=== PATIENT | female | born 1960 | race Caucasian/White ===

== ENCOUNTER 2025-01-21 08:30 | Observation (INO) ==
--- NOTE | 2025-01-15 09:58 | Anesthesiology Consultation ---
Date of Service January 15, 2025 Assessment & Plan (1) Encounter for pre-operative examination: - surgeon ordered cardiology clearance 01/14/25: "...lumbar spine surgery...no issues with anesthesia in the past...not noticing any improvement in her SOB since starting Bumex...is scheduled with pulm in Feb for PFTs, 6 MWT and appt- may have to miss this d/t back surgery...dyspnea on exertion-likely non cardiac in nature, normal right heart pressures by 08/2023 cath...await f/u with pulm ...CAD mild LAD disease by 08/2023 cath...ongoing CCS class II WAY...cleared for back surgery from cardiac perspective at low cardiac risk...mild to moderate regurgitation, continue serial echo..." - surgeon ordered medical clearance 12/24/24: "...back surgery...pre-op EKG and labs, no changes or abnormalities per pt-these results are not available ...medically cleared for proposed procedure..." - Per mount loader on 01/03/25: No known infectious disease contacts, current infectious disease symptoms in past 10 days or COVID positive test result in the past 30 days. Chart Review Chart Review: Acceptable Risk for Surgery and Patient NOT seen in Pre Admission Testing History Surgery Operation Date: 01/21/25 10:05 Proposed Procedures p L2-S1 Decompression and Fusion - Apollo Rider DO Height/Weight Height: 5 ft 5 in Weight: 76.657 kg Allergies Allergy/AdvReac Type Severity Reaction Status Date / Time copper AdvReac Severe hallucinate Verified 01/03/25 14:08 s Medications Home Medications Medication Instructions Recorded Confirmed Last Taken albuterol sulfate 90 mcg/actuation 1 inh inhalation QID PRN sob 01/03/25 01/03/25 Unknown aerosol inhaler amlodipine 10 mg tablet 10 mg PO QAM 01/03/25 01/03/25 Unknown bumetanide 2 mg tablet 2 mg PO QAM 01/03/25 01/03/25 Unknown cholecalciferol (vitamin D3) 125 125 mcg PO DAILY 01/03/25 01/03/25 Unknown mcg (5,000 unit) tablet (Vitamin D3) citalopram 30 mg capsule 30 mg PO QAM 01/03/25 01/03/25 Unknown docusate sodium 100 mg capsule 100 mg PO QAM 01/03/25 01/03/25 Unknown (Colace) isosorbide mononitrate 30 mg 30 mg PO QAM 01/03/25 01/03/25 Unknown tablet,extended release 24 hr levothyroxine 125 mcg tablet 125 mcg PO QAM 01/03/25 01/03/25 Unknown metoprolol tartrate 25 mg tablet 25 mg PO QAM 01/03/25 01/03/25 Unknown oxycodone 5 mg tablet 5 mg PO Q6H PRN Pain 01/03/25 01/03/25 Unknown pantoprazole 40 mg tablet,delayed 40 mg PO BID 01/03/25 01/03/25 Unknown release potassium chloride 10 mEq 10 meq PO QAM 01/03/25 01/03/25 Unknown tablet,extended release rosuvastatin 10 mg tablet 10 mg PO QAM 01/03/25 01/03/25 Unknown Past Medical History Medical History (Updated 01/15/25 @ 09:55 by Catherine Han PA-C) Acid reflux Chronic low back pain COPD (chronic obstructive pulmonary disease) follows w/ pulmonology [facility] Dyslipidemia Fatty liver HTN (hypertension) Hypothyroidism SOB (shortness of breath) on exertion occasional Past Surgical History Surgical History History of carpal tunnel release of both wrists History of incision and drainage abcess, left knee Hx of appendectomy Hx of cardiac catheterization 12/2023 >> sob- no stents, [facility], follows w/ Dr Zhao Hx of section x 2 Hx of colonoscopy Hx of hysterectomy Social History Smoking Status: Former smoker Do You Dip or Chew Tobacco: No Smoking End Date: 12/2023 Hx Alcohol Use: No Hx Substance Use: No substance use type: does not use Lab Results Anesthesia Preop Results Results Anesthesia Widget: WBC 7.40 K/ul (4.8-10.8) 12/19/24 Hgb 12.9 g/dl (12.0-16.0) 12/19/24 Hct 38.0 % (37.0-47.0) 12/19/24 Plt 247 K/uL (130-400) 12/19/24 Na 140 mmol/L (136-145) 12/19/24 K 4.0 mmol/L (3.5-5.1) 12/19/24 Cl 104 mmol/L (98-107) 12/19/24 CO2 28 mmol/L (21-32) 12/19/24 BUN 16 mg/dl (6-23) 12/19/24 Creat 0.87 mg/dl (0.6-1.2) 12/19/24 Glucose Level 98 mg/dl (70-99(Fasting)) 12/19/24 PT 10.3 Seconds (9.0-12.0) 12/19/24 PTT 27 Seconds (21-31) 12/19/24 INR 1.0 (0.9-1.1) 12/19/24 Urine Color Yellow 12/19/24 Urine Appearance Clear (Clear) 12/19/24 Urine pH 5.0 (4.5-7.5) 12/19/24 Urine Specific [place] 1.020 (1.000-1.030) 12/19/24 Urine Protein Negative (Negative) 12/19/24 Urine Glucose (UA) Negative (Negative) 12/19/24 Urine Ketones Negative (Negative) 12/19/24 Urine Blood Negative (Negative) 12/19/24 Urine Nitrite Negative (Negative) 12/19/24 Urine Bilirubin Negative (Negative) 12/19/24 Urine Urobilinogen Negative (Negative) 12/19/24 Urine Leukocyte Esterase 1+ (Negative) H 12/19/24 Urine WBC (Auto) 11-20 /hpf (0-5) H 12/19/24 Urine RBC (Auto) 6-10 /hpf (0-2) H 12/19/24 Urine Hyaline Casts (Auto) 0-2 /lpf (0-2) 12/19/24 Urine Epithelial Cells (Auto) 11-20 /hpf (0-2) H 12/19/24 Urine Bacteria (Auto) 1+ (None Seen) H 12/19/24 Blood Type A Positive 12/19/24 Antibody Screen NEGATIVE 12/19/24 Testing Laboratory Results Abnormal UA, culture "three types of organisms present, all low counts probable skin corbin" and PCP notation that they did not have testing at time of review. Acceptable to proceed from anesthesia standpoint-surgeon's office made aware. Electrocardiogram Date: 12/19/24 NSR, rate [address] and T wave abnormality Chest X-Ray Date: 12/19/24 No acute findings Echocardiogram Date: 05/12/23 EF 50-55% Borderline LVH Mild to moderate mitral regurgitation Stress Test MPHR 60% No significant ischemia Low risk No significant infarction Cardiac Catheterization Date: 08/16/23 Left main: angiographically normal LAD: mildly calcified with a proximal 40% stenosis Cx: mild atherosclerosis RCA: mild atherosclerosis Mild to moderate nonobstructive CAD
[~2025-01-21 08:30] MED LIST: DEXAMETHASONE SOD INJ 4 MG/ML VIAL ONE; KETAMINE HCL 10MG/ML SYR ONE; LIDOCAINE 2% 2 ML VIAL/AMP(20MG/ML) INFIL ONE; MIDAZOLAM HCL 1 MG/ML 2ML VIAL ONE; ONDANSETRON INJ 2 MG/ML 2 ML VIAL ONE; PROPOFOL IV EMULSION 10 MG/ML 20 ML VIAL IV ONE; ROCURONIUM BROMIDE 10 MG/ML 5 ML VIAL IV ONE
[2025-01-21] MEDS: CeleBREX 200 MG CAP PO SCH (09:06)
[2025-01-21] MEDS: GABAPENTIN 600 MG DOSE PO SCH (09:06)
[2025-01-21] MEDS: ACETAMINOPHEN 500 MG TAB PO SCH (09:06)
[2025-01-21] MEDS: LR 60ML/HR IV SCH (09:07)
[2025-01-21] MEDS: LR 15ML/HR IV SCH (09:25)
--- NOTE | 2025-01-21 09:50 | History & Physical Bridge Note ---
Date of Service January 21, 2025 History & Physical Bridge Note I have examined the patient, reviewed the History & Physical and in the interval since the performance of the History & Physical I have noted the following changes of clinical significance: no changes noted
[2025-01-21] MEDS ORDERED: ONDANSETRON INJ 2 MG/ML 2 ML VIAL IV PRN ×2 (09:51→14:18)
[2025-01-21] MEDS ORDERED: ATROPINE SULFATE 0.1 MG/ML 10ML SYR IV PRN (09:51)
--- NOTE | 2025-01-21 09:51 | History & Physical Report ---
Date of Service January 21, 2025 Assessment & Plan (1) Lumbosacral spondylosis with radiculopathy: Plan: L4-S1 decompression and fusion History of Present Illness Chief Complaint: Back and leg pain Primary Care Provider: Felicity Robb PA-C This is a 64-year-old female presents for chronic persistent back and leg pain after failing course of nonoperative care she is here for surgical invention. Allergies Allergy/AdvReac Type Severity Reaction Status Date / Time copper AdvReac Severe hallucinate Verified 01/21/25 09:02 s Home Medications Medication Instructions Recorded Confirmed Type albuterol sulfate 90 mcg/actuation 1 inh inhalation QID PRN sob 01/03/25 01/21/25 History aerosol inhaler amlodipine 10 mg tablet 10 mg PO QAM 01/03/25 01/21/25 History bumetanide 2 mg tablet 2 mg PO QAM 01/03/25 01/21/25 History cholecalciferol (vitamin D3) 125 125 mcg PO DAILY 01/03/25 01/21/25 History mcg (5,000 unit) tablet (Vitamin D3) citalopram 30 mg capsule 30 mg PO QAM 01/03/25 01/21/25 History docusate sodium 100 mg capsule 100 mg PO QAM 01/03/25 01/21/25 History (Colace) isosorbide mononitrate 30 mg 30 mg PO QAM 01/03/25 01/21/25 History tablet,extended release 24 hr levothyroxine 125 mcg tablet 125 mcg PO QAM 01/03/25 01/21/25 History metoprolol tartrate 25 mg tablet 25 mg PO QAM 01/03/25 01/21/25 History oxycodone 5 mg tablet 5 mg PO Q6H PRN Pain 01/03/25 01/21/25 History pantoprazole 40 mg tablet,delayed 40 mg PO BID 01/03/25 01/21/25 History release potassium chloride 10 mEq 10 meq PO QAM 01/03/25 01/21/25 History tablet,extended release rosuvastatin 10 mg tablet 10 mg PO QAM 01/03/25 01/21/25 History Past Med/Surg History Problem List (Updated 01/21/25 @ 09:51 by Apollo Rider DO) Lumbosacral spondylosis with radiculopathy Encounter for pre-operative examination Medical History Acid reflux Chronic low back pain COPD (chronic obstructive pulmonary disease) follows w/ pulmonology [facility] Dyslipidemia Fatty liver HTN (hypertension) Hypothyroidism SOB (shortness of breath) on exertion occasional Surgical History History of carpal tunnel release of both wrists History of incision and drainage abcess, left knee Hx of appendectomy Hx of cardiac catheterization 12/2023 >> sob- no stents, [facility], follows w/ Dr Zhao Hx of section x 2 Hx of colonoscopy Hx of hysterectomy Social History Smoking Status: Former smoker Tobacco Type: Cigarettes Smoking End Date: 12/2023; Second Hand Exposure: No; Do You Dip or Chew Tobacco: No; Tobacco Cessation Education Requested by Patient: No Hx Alcohol Use: No Hx Substance Use: No Preferred Language: Macanese Communication Ability: Effective Assistant Hvac Mechanic Required: No Beliefs That Will Affect Care: None Current Living Situation: Spouse Other Information That Helps Us Care for You: No Feels Safe at Home: Yes Safety Concerns: Feels Safe At This Time Assistive Devices: Denture - Upper, Glasses and Walker Physical Exam Physical Exam: Patient is alert and oriented Heart regular rhythm Lungs clear Results & Data Results & Data Vital Signs (Past 12 Hours) Vital Signs Temp Pulse Resp BP Pulse Ox O2 Del Method 01/21/25 08:59 37 C 66 20 116/54 L 94 Room Air
[2025-01-21] MEDS ORDERED: PHENYLEPHRINE HCL 10 MG/ML VIAL ONE (10:39)
[2025-01-21] MEDS ORDERED: ALBUTEROL HFA 8 GM INHALER INH ONE (10:39)
[2025-01-21] MEDS ORDERED: GLYCOPYRROLATE 0.2 MG/ML VIAL ONE (10:48)
[2025-01-21] MEDS: ceFAZolin 330 MG/ML 1 GM VIAL ONE (10:57)
[2025-01-21] MEDS: BUPIVACAINE/EPINEPHRINE 0.25% 1:200,000 30 ML VIAL ONE (10:57)
[2025-01-21] MEDS ORDERED: SUGAMMADEX SODIUM 200 MG/2 ML VIAL IV ONE (12:08)
--- NOTE | 2025-01-21 12:22 | Operative Report ---
Post Operative Report Pre & Post Diagnosis Operation Date: 01/21/25 10:05 Pre-Op Diagnosis: #1 lumbar spondylosis with radiculopathy #2 lumbar spondylolisthesis with radiculopathy #3 lumbar spinal stenosis Post-Op Diagnosis: Same I identified the patient and participated in the time-out.: Yes Procedure Operation Date: 01/21/25 10:05 Actual Procedures #1 lumbar decompression with bilateral medial facetectomies and foraminotomies L3-L4, L4-L5 and L5-S1. #2 posterior spinal fusion L4-S1. #3 placement posterior instrumentation L4-S1 using Michel. #4 interbody fusion for L5 L5- S1. #5 placement of Spira 12 x 26 mm cage at L4-5 and 13 x 26 mm x 2 and L5-S1. #6 placement of Proteus combined with Koros bone graft in the posterior lateral gutters and os design in the interbody space. #7 application of versa wrap of the exposed dura. Surgeon Apollo Rider, Fuels Engineer Carolee Crisostomo Estimated Blood Loss 400 Findings See Below Specimens None Indications This is a 64-year-old female presents above-mentioned diagnosis after failing course of nonoperative care she is here for surgical invention. Description of Procedure Patient was met with identified and informed consent obtained. Patient was then taken to the operative suite underwent intubation placed in a prone position on the Speedy table on top of the [place] frame. All bony prominences well-padded eyes inspected to ensure no external pressure placed upon them. This point lumbar spine was prepped and draped in her normal sterile fashion. Sharp dissection with the assistance of Bovie cautery was performed down to and exposing the lamina transverse processes of L4-5 and sacral ala bilaterally. From a caudal to cephalad fashion complete laminectomy of L5 and L4 was performed including bilateral medial facetectomies and foraminotomies addressing severe neural compression this was followed by partial laminectomy of L3 with bilateral medial facetectomies to address all subarticular stenosis. Pedicle screws were then placed in L4-L5 and S1 levels bilaterally with assistance of fluoroscopy and appropriately sized rods contoured and placed. By way of transforaminal approach on the right discectomy of L5-S1 was performed endplates curetted to subcortical bleeding bone and a 13 x 26 mm Spira cage tapped into position. Then proceeded to the L4-L5 region. By way the transforaminal approach on the right a complete discectomy was performed. Endplates guided to subcortical bleeding bone and a 12 x 26 mm Spira cage tapped in position. Then proceeded to the left transforaminal region at L5-S1. Discectomy again performed. Endplates guided to subcortical bleeding bone. A second 13 x 26 mm Spira cage was tapped into position. Please note all cages were packed with os design bone graft. The rods were then compressed locked into final position bilaterally. The transverse processes of L4-L5 and the sacral ala burred to subcortical bleeding bone. Proteus combined with Koros bone graft was placed in the posterior gutters. Versa wrap placed over the exposed dura. 15 round HERLINDA drain inserted. The incision was then closed with 1 Vicryl fascia 2-0 Vicryl subcutaneously and 4 Monocryl for final skin closure. Steri-Strips sterile dressing placed. Patient waken taken to PACU in stable condition. Please note Carolee Crisostomo was present out the entire procedure and all the patient positioning complex portion of the surgery and final skin closure. I attest to the content of the Intraoperative Record and any orders documented therein. Any exceptions are noted below.
[2025-01-21] MEDS: FLOSEAL HEMOSTATIC MATRIX 10ML TOP ONE (12:27)
[2025-01-21] MEDS: HYDROmorphone INJ 1 MG/ML SYRINGE IV PRN (12:55)
[2025-01-21] MEDS: ALBUT/IPRATROP 3MG/0.5MG NEB 3 ML VIAL ONE (13:01)
[2025-01-21] MEDS: ALBUT/IPRATROP 3MG/0.5MG NEB 3 ML VIAL NEB STA (13:02)
--- NOTE | 2025-01-21 14:01 | Fluoroscopy Report ---
FL lumbar spine 2-3V CLINICAL HISTORY: L4-S1 DECOMPRESSION AND FUSION COMPARISON STUDY: None FLUOROSCOPY TIME: 15 seconds FLUOROSCOPY IMAGES: 2 EXPOSURE DOSE: 15 mGy FINDINGS: Fluoroscopy was provided for lower lumbar fusion. IMPRESSION: Intraoperative fluoroscopy. ACT 112: Negative or not required by law. Electronically signed by: Romaine Cordero M.D. 01/21/2025 1:59 PM
[2025-01-21] MEDS ORDERED: FAMOTIDINE 20 MG TAB PO PRN (14:18)
[2025-01-21] MEDS ORDERED: ACETAMINOPHEN 1,000 MG/100 ML VIAL IV PRN (14:18)
[2025-01-21] MEDS ORDERED: HYDROmorphone INJ 0.5 MG/0.5 ML SYR IV PRN (14:18)
[2025-01-21] MEDS ORDERED: ACETAMINOPHEN 500 MG TAB PO PRN (14:18)
[2025-01-21] MEDS ORDERED: MAGNESIUM HYDROXIDE SUSP 30 ML UDC PO PRN (14:18)
[2025-01-21] MEDS ORDERED: DO NOT ADMINISTER FLU VACCINE PRN (14:18)
[2025-01-21] MEDS ORDERED: DO NOT ADMINISTER PNEUMOCOCCAL VACCINE PRN (14:18)
[2025-01-21] MEDS ORDERED: NALOXONE HCL 0.4 MG/1 ML VIAL/CARP IV PRN (14:18)
[2025-01-21] MEDS ORDERED: ALBUTEROL HFA 8 GM INHALER INH PRN (14:18)
[2025-01-21] MEDS ORDERED: diphenhydrAMINE Capsule 25 MG CAP PO PRN (14:18)
[2025-01-21] MEDS ORDERED: PROMETHAZINE 12.5 MG/50.5 ML BAG IV PRN (14:18)
[2025-01-21] MEDS ORDERED: METOCLOPRAMIDE HCL INJ 5 MG/ML 2 ML VIAL IV PRN (14:18)
[2025-01-21] MEDS ORDERED: ONDANSETRON 4 MG OD TAB PO PRN (14:18)
[2025-01-21] MEDS ORDERED: LORazepam 0.5 MG TAB PO PRN (14:18)
[2025-01-21] MEDS ORDERED: SOD PHOSPHATE/SOD BIPHOSPHATE ENEMA 132 ML BTL PR PRN (14:18)
[2025-01-21] MEDS ORDERED: LORazepam Inj 0.5 MG in SYRINGE 0.25 ML IV PRN (14:18)
--- NOTE | 2025-01-21 14:36 | Anesthesiology Progress Note ---
Date of Service January 21, 2025 Anesthesia Post Procedure Vital Signs Vital Signs: Temp Pulse Pulse Resp BP Pulse Ox O2 Del Method 01/21/25 14:25 77 14 110/65 92 Nasal Cannula 01/21/25 14:10 83 14 101/56 L 92 Nasal Cannula 01/21/25 13:55 36.5 C 75 15 106/67 92 Nasal Cannula 01/21/25 13:45 76 13 106/71 92 Nasal Cannula 01/21/25 13:35 74 14 102/81 92 Nasal Cannula 01/21/25 13:25 77 12 107/71 92 Nasal Cannula 01/21/25 13:15 78 14 99/79 L 94 Nasal Cannula 01/21/25 13:05 74 16 105/67 97 Nebulizer 01/21/25 12:55 77 20 110/84 94 Oxymask 01/21/25 12:45 74 22 103/65 96 Oxymask 01/21/25 12:35 36.3 C L 82 18 114/66 98 Oxymask 01/21/25 08:59 37 C 66 20 116/54 L 94 Room Air O2 Flow Rate 01/21/25 14:25 4 01/21/25 14:10 4 01/21/25 13:55 4 01/21/25 13:45 4 01/21/25 13:35 4 01/21/25 13:25 4 01/21/25 13:15 4 01/21/25 13:05 7 01/21/25 12:55 5 01/21/25 12:45 6 01/21/25 12:35 6 01/21/25 08:59 Pain Intensity Bilateral Back: Pain Intensity: 7 Back: Pain Intensity: 8 Transfer of Care Handoff Completed per policy Notes Mental Status: alert / awake / arousable Patient Amnestic to Procedure: Yes Nausea / Vomiting: adequately controlled Pain: adequately controlled Airway Patency, RR, SpO2: stable & adequate BP & HR: stable & adequate Hydration State: stable & adequate Anesthetic Complications: no major complications apparent and Pt Satisfied with anesthetic care
[2025-01-21] MEDS: SODIUM CHLORIDE 0.9% 1,000 ML IV SCH (15:15)
--- NOTE | 2025-01-21 19:58 | Consultation ---
Date of Consultation January 21, 2025 Assessment & Plan (1) Lumbosacral spondylosis with radiculopathy: (2) HTN (hypertension): (3) COPD (chronic obstructive pulmonary disease): (4) Dyslipidemia: (5) Hypothyroidism: Plan Patient is a 64 year old F with a past medical history of Lumbosacral spondylosis with radiculopathy, COPD, dyslipidemia, fatty liver, HTN, hypothyroidism, GERD here for post-op management s/p lumbar decompression with bilateral medial facetectomies and foraminotomies L3-S1, spinal fusion L4-S1, posterior instrumentation L4-S1, interbody fusion for L5-S1. Failed outpatient conservative management of chronic low back pain and currently taking oxycodone Q4H at home with only some relief. Lumbosacral spondylosis with radiculopathy * POD#0 s/p lumbar decompression with bilateral medial facetectomies and foraminotomies L3-S1, spinal fusion L4-S1, posterior instrumentation L4-S1, interbody fusion for L5-S1 with Dr. Rider * Per ortho for pain control; has been on Oxycodone 5mg Q4H at home * Per Ortho wound care, anticoagulation and activities * Pre-op Hgb 12.1, EBL 400 ml + additional loss via HERLINDA drain-> trend H&H * Cefazolin and Decadrom post-op per Ortho * Encourage incentive spirometry and wean supplemental oxygen as tolerated * Maintain johns-> remove when able * PT/OT when appropriate #Hypertension * BP 99/64 post-op * Hold home amlodipine, bumex, isosorbide in the morning and trend BP's * Decreased metoprolol dose to 12.5 mg for the morning given low BP's; no history of Afib per patient report #COPD * Former smoker * Requiring 4 LPM supplemental oxygen post-op; no oxygen at home; NAD on exam * Albuterol as needed for shortness of breath and wheezing #Dyslipidemia * Continue home statin therapy #Hypothyroidism * Continue home levothyroxine DVT Ppx: SCDs Code status: Full PCP: Dr. Felicity Robb Dispo: Admit Patient seen in collaboration with Dr. Marie. Please see addendum.I spent a total of 30 minutes coordinating, documenting and providing care for this patient excluding time spent in the performance of separately billed services or time spent by another provider/QHP. Thank you for this consultation. We will follow the patient with you during their hospital stay. You can reach a member of the [facility]ist Team 04/10 via [employer]. Supervising Physician Co-Signing Physician Notes Attending Addendum: Case reviewed with the advanced practitioner. I have personally performed a history and physical examination on the patient. I have reviewed the advanced practitioner's documentation on the date of service referenced in note, and I agree with, and take responsibility for the plan of care. please refer to her notes for full details patient seen and examined, records reviewed by myself as well on exam, patient seen resting in bed, sleeping on 4L NC not in distress, comfortable states she feels fine overall denies shortness of breath, wheezing states she uses albuterol INH 4x a day at home, cannot afford Trelegy as prescri bed no chest pain, dyspnea, palpitations, dizziness no other symptoms VS noted and reviewed orientedx 3 , not in distress, speaks in sentences with no effort nor accessory muscle use normal rate, regular rhythm, no murmurs (+) mild scattered wheeze BL good air entry non distended, soft, nontender no bipedal edema, erythema, warmth no neuro deficits all labs, imaging noted and reviewed ASSESSMENT AND PLAN> ACUTE BLOOD LOSS ANEMIA EBL 400CC Hg 12 --> 10.8 BP on the lower side hold BP meds, except metoprolol--> decrease to 12.5mg po daily from 25mg IV fluids COPD Uncontrolled Acute Hypoxia cannot afford Trelegy as prescribed at home, unfortunately only uses Albuterol 4x a day (+) wheezing, on 4 L NC check CXR start Xopenex, Atrovent QID start Advair if without improvement on wheezing, start Prednisone tomorrow 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 Martin Marie MD History of Present Illness Attending Physician: Apollo Rider DO History of Present Illness Patient is a 64 year old F with a past medical history of lumbosacral spondylosis with radiculopathy, COPD, dyslipidemia, fatty liver, HTN, hypothyroidism, GERD here for post-op management s/p lumbar decompression with bilateral medial facetectomies and foraminotomies L3-S1, spinal fusion L4-S1, posterior instrumentation L4-S1, interbody fusion for L5-S1. Failed outpatient conservative management for chronic low back pain and currently taking oxycodone Q4H at home with only some relief. Denies fever, chills, weight loss, headache, cognitive changes, vision/hearing changes, chest pain, SOB, swelling, difficulty breathing, urinary concerns, N/V/D, saddle anesthesia, radiating pain. Allergies Allergy/AdvReac Type Severity Reaction Status Date / Time copper AdvReac Severe hallucinate Verified 01/21/25 09:02 s Home Medications Medication Instructions Recorded Confirmed Type albuterol sulfate 90 mcg/actuation 1 inh inhalation QID PRN sob 01/03/25 01/21/25 History aerosol inhaler amlodipine 10 mg tablet 10 mg PO QAM 01/03/25 01/21/25 History bumetanide 2 mg tablet 2 mg PO QAM 01/03/25 01/21/25 History cholecalciferol (vitamin D3) 125 125 mcg PO DAILY 01/03/25 01/21/25 History mcg (5,000 unit) tablet (Vitamin D3) citalopram 30 mg capsule 30 mg PO QAM 01/03/25 01/21/25 History docusate sodium 100 mg capsule 100 mg PO QAM 01/03/25 01/21/25 History (Colace) isosorbide mononitrate 30 mg 30 mg PO QAM 01/03/25 01/21/25 History tablet,extended release 24 hr levothyroxine 125 mcg tablet 125 mcg PO QAM 01/03/25 01/21/25 History metoprolol tartrate 25 mg tablet 25 mg PO QAM 01/03/25 01/21/25 History oxycodone 5 mg tablet 5 mg PO Q6H PRN Pain 01/03/25 01/21/25 History pantoprazole 40 mg tablet,delayed 40 mg PO BID 01/03/25 01/21/25 History release potassium chloride 10 mEq 10 meq PO QAM 01/03/25 01/21/25 History tablet,extended release rosuvastatin 10 mg tablet 10 mg PO QAM 01/03/25 01/21/25 History Patient History Medical History Acid reflux Chronic low back pain COPD (chronic obstructive pulmonary disease) follows w/ pulmonology [facility] Dyslipidemia Fatty liver HTN (hypertension) Hypothyroidism SOB (shortness of breath) on exertion occasional Surgical History History of carpal tunnel release of both wrists History of incision and drainage abcess, left knee Hx of appendectomy Hx of cardiac catheterization 12/2023 >> sob- no stents, [facility], follows w/ Dr Zhao Hx of section x 2 Hx of colonoscopy Hx of hysterectomy Social History Smoking Status: Former smoker Tobacco Type: Cigarettes Smoking End Date: 12/2023; Second Hand Exposure: No; Do You Dip or Chew Tobacco: No; Tobacco Cessation Education Requested by Patient: No Hx Alcohol Use: No Hx Substance Use: No Preferred Language: Czech Communication Ability: Effective Shoveler Required: No Beliefs That Will Affect Care: None Current Living Situation: Spouse Other Information That Helps Us Care for You: No Feels Safe at Home: Yes Safety Concerns: Feels Safe At This Time Assistive Devices: Denture - Upper, Glasses and Walker Review of Systems Review of Systems: All systems reviewed & are unremarkable except as noted in HPI & below Physical Exam Physical Exam: VITALS: Reviewed. WEIGHT/BMI reviewed. GEN: Pale, well-developed, NAD. PSYCH: Good Judgment. AOx3. Normal memory, mood, and affect. HEENT -Head: NC/AT; -Eyes: PERRL, EOMI. No discharge or redn ess; -Ears: External ears are normal. -Nose: Normal nares. -Mouth and throat: MMM. Normal gums, muc higinio, palate,. Good dentition. NECK: Supple, with no masses. CV: S1, S2 without murmur or extra beats, no swelling LUNGS: CTAB, no cough, 4LPM supplemental oxygen, NAD ABD: Soft, NT/ND, NBS, no masses or organomegaly. : Johns intact, sridhar urine output SKIN: Warm, well perfused. No skin rashes or abnormal lesions. MSK: BARAJAS freely, BLE strength 5/5 EXT: No clubbing, cyanosis, or edema. NEURO: CN II-XII grossly intact. No focal deficits. Results & Data Vital Signs (Past 12 Hours) Vital Signs Temp Pulse Pulse Resp BP Pulse Ox O2 Del Method 01/21/25 19:28 36.7 C 76 18 99/64 L 93 Room Air 01/21/25 18:00 36.9 C 79 18 105/68 94 Nasal Cannula 01/21/25 16:57 72 16 102/69 96 Nasal Cannula 01/21/25 16:28 69 16 114/69 96 Nasal Cannula 01/21/25 15:30 36.8 C 79 18 96/63 L 96 Nasal Cannula 01/21/25 15:15 Nasal Cannula 01/21/25 15:00 36.7 C 80 18 99/63 L 95 Nasal Cannula 01/21/25 14:40 78 12 107/69 92 Nasal Cannula 01/21/25 14:25 77 14 110/65 92 Nasal Cannula 01/21/25 14:10 83 14 101/56 L 92 Nasal Cannula 01/21/25 13:55 36.5 C 75 15 106/67 92 Nasal Cannula 01/21/25 13:45 76 13 106/71 92 Nasal Cannula 01/21/25 13:35 74 14 102/81 92 Nasal Cannula 01/21/25 13:25 77 12 107/71 92 Nasal Cannula 01/21/25 13:15 78 14 99/79 L 94 Nasal Cannula 01/21/25 13:05 74 16 105/67 97 Nebulizer 01/21/25 12:55 77 20 110/84 94 Oxymask 01/21/25 12:45 74 22 103/65 96 Oxymask 01/21/25 12:35 36.3 C L 82 18 114/66 98 Oxymask 01/21/25 08:59 37 C 66 20 116/54 L 94 Room Air O2 Flow Rate 01/21/25 19:28 01/21/25 18:00 4 01/21/25 16:57 2 01/21/25 16:28 2 01/21/25 15:30 4 01/21/25 15:15 4 01/21/25 15:00 5 01/21/25 14:40 4 01/21/25 14:25 4 01/21/25 14:10 4 01/21/25 13:55 4 01/21/25 13:45 4 01/21/25 13:35 4 01/21/25 13:25 4 01/21/25 13:15 4 01/21/25 13:05 7 01/21/25 12:55 5 01/21/25 12:45 6 01/21/25 12:35 6 01/21/25 08:59
[2025-01-21] MEDS: DOCUSATE SODIUM/SENNA 50/8.6MG TAB PO SCH (20:09)
[2025-01-21 21:11] LABS: Hematocrit (blood only) 33.3 % (37.0-47.0); Hemoglobin 10.8 g/dl (12.0-16.0)
[2025-01-21] MEDS: LEVALBUTEROL 1.25 MG/3 ML NEB NEB SCH (21:40)
--- NOTE | 2025-01-21 23:09 | XRay Report ---
Exam(s): XR CXR 1 VIEW EXAM: XR Chest, 1 View CLINICAL HISTORY: Reason for exam: wheezing. TECHNIQUE: Frontal view of the chest. COMPARISON: No relevant prior studies available. FINDINGS: Lungs: Unremarkable. No consolidation. Pleural space: Unremarkable. No pneumothorax. Heart: Unremarkable. No cardiomegaly. Mediastinum: Unremarkable. Normal mediastinal contour. Bones/joints: Unremarkable. No acute fracture. IMPRESSION: Normal chest x-ray. Electronically signed by: Martin Cartwright MD 01/21/25 23:08 PM
[2025-01-22] MEDS: ALUMINUM/MAGNESIUM SUSP 30 ML UDC PO PRN (00:23)
[2025-01-22] MEDS: IPRATROPIUM BROMIDE NEB SOLN 0.02% 0.5MG/2.5ML VIAL NEB SCH (01:01)
[2025-01-22] MEDS: LEVALBUTEROL 1.25 MG/3 ML NEB NEB SCH (01:02)
[2025-01-22] MEDS: POLYETHYLENE (MIRALAX) 17 GM PACK PO SCH (05:52)
[2025-01-22] MEDS: LEVOTHYROXINE SODIUM 125 MCG TABLET PO SCH (05:53)
[2025-01-22] MEDS: IPRATROPIUM BROMIDE NEB SOLN 0.02% 0.5MG/2.5ML VIAL NEB PRN (07:35)
[2025-01-22] MEDS: LEVALBUTEROL 1.25 MG/3 ML NEB NEB PRN (07:35)
[2025-01-22] MEDS: CHOLECALCIFEROL 125 MCG (5,000 UNITS) TAB PO SCH (08:19)
[2025-01-22] MEDS: CITALOPRAM 20 MG TAB PO SCH (08:19)
[2025-01-22] MEDS: dexAMETHasone 6 MG in SYRINGE 0 ML IV SCH (08:20)
[2025-01-22] MEDS: FLUTICASONE/VILANTEROL 200/25MCG 14 PUFFS/INHALER INH SCH (08:20)
[2025-01-22] MEDS: ROSUVASTATIN CALCIUM 10 MG TAB PO SCH (08:21)
[2025-01-22] MEDS: POTASSIUM CHLORIDE 10 MEQ TABCR PO SCH (08:21)
[2025-01-22] MEDS: METOPROLOL TARTRATE 25 MG TAB PO SCH (08:21)
[2025-01-22 08:35] LABS: Hematocrit (blood only) 29.2 % (37.0-47.0); Hemoglobin 9.7 g/dl (12.0-16.0); Immature Granulocytes # (auto) 0.06 K/uL (0.01-0.20); Immature Granulocytes % (auto) 0.5 %; Mean Corpuscular Hemoglobin 29.5 pg (25.0-34.0); Mean Corpuscular Volume 88.8 fL (80.0-100.0); Platelet Count 221 K/uL (130-400); RDW Standard Deviation 38.7 fL (36.4-46.3); Red Blood Count 3.29 M/uL (4.20-5.40); White Blood Count 12.59 K/ul (4.8-10.8)
[2025-01-22] MEDS ORDERED: METOPROLOL TARTRATE 25 MG TAB PO SCH (09:00)
[2025-01-22] MEDS ORDERED: ISOSORBIDE MONO EXTENDED REL 30 MG TABCR PO SCH (09:00)
[2025-01-22] MEDS ORDERED: BUMETANIDE 1 MG TAB PO SCH (09:00)
[2025-01-22 09:03] LABS: Anion Gap 6.0 (3-11); Blood Urea Nitrogen 22.0 mg/dl (6-23); Calcium 8.8 mg/dl (8.6-10.3); Carbon Dioxide 27.0 mmol/L (21-32); Chloride 104.0 mmol/L (98-107); Creatinine Clr Calc Pharmacy 62.8 ml/min; Glucose 153.0 mg/dl (70-99(Fasting)); Potassium 4.7 mmol/L (3.5-5.1); Sodium 137.0 mmol/L (136-145)
--- NOTE | 2025-01-22 11:18 | Orthopedic Progress Note ---
Date of Service January 22, 2025 Assessment & Plan (1) Lumbosacral spondylosis with radiculopathy: Plan: At this time we will continue physical therapy monitor HERLINDA output over the discharge over the next few days. Admission and Anticipated Discharge Date Admission Date: January 21, 2025 Subjective Patient's back pain is controlled leg pain markedly improved Physical Exam Physical Exam: Patient is in the chair at the bedside. She is comfortable. No strength testing. Results & Data Vital Signs (Past 12 Hours) Vital Signs Temp Pulse Resp BP Pulse Ox O2 Del Method O2 Flow Rate 01/22/25 07:35 65 16 97 Nasal Cannula 2 01/22/25 07:29 36.9 C 81 16 99/57 L 95 Nasal Cannula 2 01/22/25 07:25 Nasal Cannula 2 01/22/25 03:34 36.6 C 75 19 108/61 92 Nasal Cannula 2 Queries Orthopedic Spine Acute Posthemorrhagic Anemia: Yes
--- NOTE | 2025-01-22 16:03 | Hospitalist Progress Note ---
Date of Service January 22, 2025 Assessment & Plan (1) Lumbosacral spondylosis with radiculopathy: (2) HTN (hypertension): (3) COPD (chronic obstructive pulmonary disease): (4) Dyslipidemia: (5) Hypothyroidism: Plan Mr. Kennedy is a 64 year old woman with a past medical history of lumbosacral spondylosis with radiculopathy, COPD, dyslipidemia, fatty liver, HTN, hypothyroidism, GERD here for post-op management s/p lumbar decompression with bilateral medial facetectomies and foraminotomies L3-S1, spinal fusion L4-S1, posterior instrumentation L4-S1, interbody fusion for L5-S1 who is s/p L4-S1 decompression and fusion on 01/21. Patient is doing well postoperatively. #Lumbosacral spondylosis with radiculopathy #s/p lumbar decompression with bilateral medial facetectomies and foraminotomies L3-S1, spinal fusion L4-S1, posterior instrumentation L4-S1, interbody fusion for L5-S1 with Dr. Rider -analgesia prn per ortho -dvt PPX per primary service -IS not a bedside, directed nursing who was able to give to patient plan to remove johns today PT/OT: recommends return home #post op resp insufficiency #COPD Former smoker lungs clear on exam Requiring 4 LPM supplemental oxygen post-op; no oxygen at home; NAD on exam albuterol prn, IS encouraged wean off o2 as able #acute blood loss anemia 2/2 post op losses Hgb 12 preop, down to 9.7 this am remains HDS, no tachycardia noted transfuse hgb < 7 trend HH #Post op hypotension #Hypertension remains relatively soft Continue to hold home amlodipine, bumex, isosorbide, resume in stepwise fashion Metoprolol dose decreased post op, resume home dosing in am #Dyslipidemia * Continue home statin therapy #Hypothyroidism * Continue home levothyroxine DVT Ppx: SCDs Code status: Full PCP: Dr. Felicity Robb Thank you for this consultation. We will follow the patient with you during their hospital stay. You can reach a member of the [facility] Hospitalist Team 04/10 via [employer]. Admission and Anticipated Discharge Date Admission Date: January 21, 2025 Subjective NAEO reports some mild pain in her back, but over feeling well and notes that she walked around this am denies any sob, chest pain or other acute concerns notes she is not on oxygen at home Physical Exam Constitutional: WD/WN, vitals as above Respiratory: normal respiratory effort, lungs clear to auscultation Cardiovascular: RRR, no murmur, no edema Gastrointestinal (Abdomen): normal bowel sounds, soft, nontender, no hepatosplenomegaly Results & Data Results & Data Vital Signs (Past 12 Hours) Vital Signs Temp Pulse Pulse Resp BP Pulse Ox O2 Del Method 01/22/25 12:49 36.6 C 83 14 117/66 94 Room Air 01/22/25 11:24 36.6 C 82 16 112/62 91 Room Air 01/22/25 07:35 65 16 97 Nasal Cannula 01/22/25 07:29 36.9 C 81 16 99/57 L 95 Nasal Cannula 01/22/25 07:25 Nasal Cannula O2 Flow Rate 01/22/25 12:49 01/22/25 11:24 01/22/25 07:35 2 01/22/25 07:29 2 01/22/25 07:25 2
[2025-01-22] MEDS: HYDROmorphone INJ 1 MG/ML SYRINGE IV PRN (23:53)
[2025-01-23] MEDS: METOPROLOL TARTRATE 25 MG TAB PO SCH (08:07)
[2025-01-23 08:13] LABS: Hematocrit (blood only) 32.9 % (37.0-47.0); Hemoglobin 10.5 g/dL (12.0-16.0)
[2025-01-23 08:29] LABS: Iron 49.0 mcg/dl (35-150); Total Iron Binding Cap Calc 288.0 mcg/dl (250-450); Transferrin 206.0 mg/dl (200-360); Transferrin (FE) Percent Satur 17.0 % (15-50)
[2025-01-23 08:48] LABS: Ferritin 126.8 ng/ml (8-388)
--- NOTE | 2025-01-23 10:07 | Orthopedic Progress Note ---
Date of Service January 23, 2025 Assessment & Plan (1) Lumbosacral spondylosis with radiculopathy: Plan: At this point we will continue physical therapy monitor her HERLINDA output anticipate discharge home in the next few days. Admission and Anticipated Discharge Date Admission Date: January 21, 2025 Subjective Patient struggling with her back pain today. Her leg pain continues to be improved. She is tolerating therapy. Physical Exam Physical Exam: Patient is up and ambulating. She is comfortable. Distracted testing. Results & Data Vital Signs (Past 12 Hours) Vital Signs Temp Pulse Resp BP Pulse Ox O2 Del Method 01/23/25 07:52 37.0 C 72 16 113/74 92 Room Air 01/22/25 22:08 36.8 C 72 18 113/66 95 Room Air Queries Orthopedic Spine Acute Posthemorrhagic Anemia: Yes
--- NOTE | 2025-01-23 13:16 | Hospitalist Progress Note ---
<Statement entered by José Miguel Dotson, - 01/23/25 13:38> I have seen and examined the patient and have discussed the case with the advance practice provider. I have reviewed the advanced practitioner's documentation, and I agree with, and take responsibility for that plan of care. Patient seen while cleaning up in restroom. Doing well. On room air. Surgical dressing clean and dry, HERLINDA drain in place. Continue postoperative care. Anticipate ready for discharge medically when surgically appropriate for attending I spent a total of 12 minutes coordinating, documenting, and providing care for this patient excluding time spent by another provider/QHP. Date of Service January 23, 2025 Assessment & Plan (1) Lumbosacral spondylosis with radiculopathy: (2) HTN (hypertension): (3) COPD (chronic obstructive pulmonary disease): (4) Dyslipidemia: (5) Hypothyroidism: Plan 64 year old woman with a past medical history of COPD, dyslipidemia, fatty liver, HTN, hypothyroidism, GERD, and lumbosacral spondylosis with radiculopathy who underwent L4-S1 decompression and fusion by Dr. Rider on 01/21/2025. We have been consulted for post operative medical management. Lumbosacral spondylosis with radiculopathy POD#2 L4-S1 decompression and fusion by Dr. Rider on 01/21/2025 Activity level, pain control, DVT prophylaxis, bowel regimen, wound/drain care per primary team PT/OT consults recommending return home Anticipate dc in the next few days Acute blood loss anemia Preop Hgb 12.9-> 10.5 today EBL 400cc and HERLINDA drain output 860cc so far Vitals stable and patient asymptomatic Monitor H&H Hypertension BPs initially soft post op Holding amlodipine, bumex, isosorbide Resume as able Post operative hypoxia-> resolved Initially needed 4L O2 post op Currently on RA Encourage incentive spirometer COPD Patient cannot afford Trelegy Started on Advair and will need more affordable maintenance therapy at discharge PRN atrovent and xopenex Recommend follow up with Pulm and PFTs as scheduled in February Dyslipidemia Continue statin Hypothyroidism Continue levothyroxine DVT Prophylaxis: TEDs/SCDs per primary team Code Status: FULL CODE PCP: Felicity Robb ([facility]) Disposition: anticipate dc to home in next few days Patient seen in collaboration with Dr. Dotson. Please see addendum. Thank you for this consultation. We will continue to follow this patient with you. A member of the [facility] team is available 04/10 via the role in [employer] - please don't hesitate to reach out with questions. I spent a total of 45 minutes coordinating, documenting and providing care for this patient excluding time spent in the performance of separately billed services or time spent by another provider/QHP. Admission and Anticipated Discharge Date Admission Date: January 21, 2025 Subjective Patient seen resting in bed after working with OT Reports pain in her low back Denies symptoms in legs or between shoulder blades which is improved from prior to surgery Passing gas but no bowel movement yet Denies dizziness, chest pain, SOB, abdominal pain, N/V Review of Systems Review of Systems: All systems reviewed & are unremarkable except as noted in HPI & below Physical Exam Physical Exam: General/Psych: WD/WN, sitting up in bed, NAD, conversing easily Head: normocephalic, atraumatic Eyes: normal inspection, PERRL, conjunctivae pink ENT: external ear and nose normal, oropharynx normal Neck: normal visual inspection, trachea midline Respiratory: normal respiratory effort, lungs clear to auscultation, no wheeze/rales/rhonchi, no accessory muscle use Cardiovascular: regular rate and rhythm, no murmur/rub/gallop Extremities: no cyanosis or clubbing, normal peripheral pulses, no BLE edema, sensation intact BLE Abdomen/GI: normal bowel sounds, soft, nontender Neurologic/MSK: A+Ox3, motor strength 5/5, moves all extremities Skin: no rashes, normal color, warm and dry, HERLINDA drain with sanguinous output, island dressing c/d/i Results & Data Results & Data Vital Signs (Past 12 Hours) Vital Signs Temp Pulse Resp BP Pulse Ox O2 Del Method 01/23/25 07:52 37.0 C 72 16 113/74 92 Room Air Laboratory Results Short CBC 01/23/25 Range/Units 07:31 Hgb 10.5 L (12.0-16.0) g/dL Hct 32.9 L (37.0-47.0) % I have independently reviewed and interpreted patient's labs including H&H Medications Administered Current Inpatient Medications Acetaminophen (Acetaminophen 500 Mg Tab) 1,000 mg PO Q8H PRN PRN Reason: MILD Pain (1,2,3) & Pre PT Stop: 02/20/25 14:17 Al Hydrox/Mg Hydrox/Simethicone (Aluminum/Magnesium Susp 30 Ml Udc) 30 ml PO Q6H PRN PRN Reason: Dyspepsia Stop: 02/20/25 14:17 Last Admin: 01/22/25 00:23 Dose: 30 ml Albuterol (Albuterol Hfa 8 Gm Inhaler) 1 puffs INH QID PRN PRN Reason: sob Stop: 02/20/25 14:17 Amlodipine Besylate (Amlodipine Besylate 5 Mg Tab) 10 mg PO QAM ELISABETH Stop: 02/21/25 08:59 Bisacodyl (Bisacodyl 10 Mg Supp) 10 mg OR DAILY PRN PRN Reason: Constipation Stop: 02/20/25 14:17 Bumetanide (Bumetanide 1 Mg Tab) 2 mg PO QAM [facility] Stop: 02/21/25 08:59 Citalopram Hydrobromide (Citalopram 20 Mg Tab) 30 mg PO QAM [facility] Stop: 02/21/25 08:59 Last Admin: 01/23/25 08:06 Dose: 30 mg Diphenhydramine HCl (Diphenhydramine Capsule 25 Mg Cap) 25 mg PO Q6H PRN PRN Reason: Allergic Rhinitis/Insomnia Stop: 02/20/25 14:17 Famotidine (Famotidine 20 Mg Tab) 20 mg PO Q12H PRN PRN Reason: Dyspepsia Stop: 02/20/25 14:17 Fluticasone/Vilanterol (Fluticasone/Vilanterol 200/25mcg 14 Puffs/Inhaler) 1 puffs INH DAILY [facility] Stop: 02/21/25 08:59 Last Admin: 01/23/25 08:07 Dose: 1 puffs Hydromorphone HCl (Hydromorphone Inj 0.5 Mg/0.5 Ml Syr) 0.5 mg IV Q3H PRN PRN Reason: MODERATE Pain(4,5,6)/Pre PT Stop: 02/04/25 14:17 Hydromorphone HCl (Hydromorphone Inj 1 Mg/Ml Syringe) 1 mg IV Q3H PRN PRN Reason: SEVERE Pain (7,8,9,10) Stop: 02/04/25 14:17 Last Admin: 01/23/25 11:07 Dose: 1 mg Hydroxyzine HCl (Hydroxyzine Hcl 25 Mg Tab) 25 mg PO Q8H PRN PRN Reason: Anxiety Stop: 02/20/25 14:17 Cefazolin Sodium (Ancef 2000mg) 2,000 mg in 15 mls @ 3.75 mls/min IV Q8H ELISABETH Stop: 01/24/25 10:33 Last Admin: 01/23/25 11:07 Dose: 3.75 mls/min Promethazine HCl (Phenergan) 12.5 mg in 50.5 mls @ 202 mls/hr IV Q6H PRN PRN Reason: Nausea And Vomiting Stop: 02/20/25 14:17 Lorazepam 0.5 mg/ Syringe 0.5 mls @ 2 mls/min IV Q8H PRN PRN Reason: Sedation/Anxiety Stop: 02/20/25 14:17 Dexamethasone 6 mg/ Syringe 1.5 mls @ 1 mls/min IV DAILY [facility] Stop: 01/24/25 09:02 Last Admin: 01/23/25 08:07 Dose: 1 mls/min Influenza Virus Vaccine Quadrival (Do Not Administer Flu Vaccine) 1 each N/A PRN PRN PRN Reason: Notification Stop: 02/20/25 14:17 Ipratropium [place] (Ipratropium [place] Neb Soln 0.02% 0.5mg/2.5ml Vial) 0.5 mg NEB Q6R PRN PRN Reason: Wheezing Stop: 02/21/25 00:59 Last Admin: 01/22/25 07:35 Dose: 0.5 mg Isosorbide Mononitrate (Isosorbide Leslie Extended Rel 30 Mg Tabcr) 30 mg PO QAM [facility] Stop: 02/21/25 08:59 Levalbuterol HCl (Levalbuterol 1.25 Mg/3 Ml Neb) 1.25 mg NEB Q6R PRN PRN Reason: Wheezing Stop: 02/21/25 00:59 Last Admin: 01/22/25 07:35 Dose: 1.25 mg Levothyroxine Sodium (Levothyroxine Sodium 125 Mcg Tablet) 125 mcg PO DAILYBB [facility] Stop: 02/21/25 06:29 Last Admin: 01/23/25 05:33 Dose: 125 mcg Lorazepam (Lorazepam 0.5 Mg Tab) 0.5 mg PO Q8H PRN PRN Reason: Sedation/Anxiety Stop: 02/20/25 14:17 Magnesium Hydroxide (Magnesium Hydroxide Susp 30 Ml Udc) 30 ml PO Q24H PRN PRN Reason: Constipation Stop: 02/20/25 14:17 Metoclopramide HCl (Metoclopramide Hcl Inj 5 Mg/Ml 2 Ml Vial) 10 mg IV Q6H PRN PRN Reason: Nausea &/or Vomiting Stop: 02/20/25 14:17 Metoprolol Tartrate (Metoprolol Tartrate 25 Mg Tab) 25 mg PO QAM ELISABETH Stop: 02/22/25 08:59 Last Admin: 01/23/25 08:07 Dose: 25 mg Naloxone HCl (Naloxone Hcl 0.4 Mg/1 Ml Vial/Carp) 0.1 mg IV Q5M PRN PRN Reason: Oversedation/Resp depression Stop: 02/20/25 14:17 Ondansetron HCl (Ondansetron Inj 2 Mg/Ml 2 Ml Vial) 4 mg IV Q6H PRN PRN Reason: Nausea &/or Vomiting Stop: 02/20/25 14:17 Ondansetron HCl (Ondansetron 4 Mg Od Tab) 4 mg PO Q6H PRN PRN Reason: Nausea Stop: 02/20/25 14:17 Oxycodone HCl (Oxycodone Hcl Ir 5 Mg Tab (Immediate Release)) 5 - 10 mg PO Q4H PRN PRN Reason: MOD/SEV Pain & Pre PT Stop: 02/04/25 14:17 Last Admin: 01/23/25 10:14 Dose: 10 mg Pantoprazole Sodium (Pantoprazole 40 Mg Tab) 40 mg PO BID ELISABETH Stop: 02/20/25 20:59 Last Admin: 01/23/25 08:07 Dose: 40 mg Pneumococcal Polyvalent Vaccine (Do Not Administer Pneumococcal Vaccine) 1 each N/A PRN PRN PRN Reason: Notification Stop: 02/20/25 14:17 Polyethylene Glycol (Polyethylene (Miralax) 17 Gm Pack) 17 gm PO Q6 ELISABETH Stop: 02/21/25 05:59 Last Admin: 01/23/25 11:07 Dose: 17 gm Potassium Chloride (Potassium Chloride 10 Meq Tabcr) 10 meq PO QAM [facility] Stop: 02/21/25 08:59 Last Admin: 01/23/25 08:07 Dose: 10 meq Rosuvastatin Calcium (Rosuvastatin Calcium 10 Mg Tab) 10 mg PO QAM [facility] Stop: 02/21/25 08:59 Last Admin: 01/23/25 08:07 Dose: 10 mg Senna/Docusate Sodium (Docusate Sodium/Senna 50/8.6mg Tab) 2 tab PO HS [facility] Stop: 02/20/25 20:59 Last Admin: 01/22/25 20:41 Dose: 2 tab Sodium Biphosphate/Sodium Phosphate (Sod Phosphate/Sod Biphosphate Enema 132 Ml Btl) 132 ml OR ONE PRN PRN Reason: Constipation Stop: 02/20/25 14:17 Tramadol HCl (Tramadol Hcl 50 Mg Tablet) 50 - 100 mg PO Q4H PRN PRN Reason: MOD/SEV Pain & Pre PT Stop: 02/20/25 14:17 Vitamin D (Cholecalciferol 125 Mcg (5,000 Units) Tab) 125 mcg PO DAILY [facility] Stop: 02/21/25 08:59 Last Admin: 01/23/25 08:06 Dose: 125 mcg
[2025-01-24 07:54] VITALS: BP 124/71; PULSE 74; RESP 16; TEMP 98.2; O2SAT 94
[2025-01-24 08:26] LABS: Hematocrit (blood only) 30.8 % (37.0-47.0); Hemoglobin 10.0 g/dL (12.0-16.0); Mean Corpuscular Hemoglobin 28.8 pg (25.0-34.0); Mean Corpuscular Volume 88.8 fL (80.0-100.0); Platelet Count 240 K/uL (130-400); RDW Standard Deviation 40.0 fL (36.4-46.3); Red Blood Count 3.47 M/uL (4.20-5.40); White Blood Count 12.09 K/ul (4.8-10.8)
[2025-01-24 08:40] LABS: Anion Gap 5.0 (3-11); Blood Urea Nitrogen 17.0 mg/dl (6-23); Calcium 9.1 mg/dl (8.6-10.3); Carbon Dioxide 31.0 mmol/L (21-32); Chloride 103.0 mmol/L (98-107); Creatinine Clr Calc Pharmacy 75.8 ml/min; Glucose 84.0 mg/dl (70-99(Fasting)); Potassium 4.0 mmol/L (3.5-5.1); Sodium 139.0 mmol/L (136-145)
--- NOTE | 2025-01-24 10:23 | Discharge Summary ---
Date of Service January 24, 2025 Admission HPI Per Admitting Provider This is a 64-year-old female presents for chronic persistent back and leg pain after failing course of nonoperative care she is here for surgical invention. Admission Exam (Per Admitting) Constitutional WD/WN, vitals as above Eyes normal visual agee by confrontation ENMT external ear and nose normal, oropharynx normal Neck normal visual inspection Respiratory normal respiratory effort Cardiovascular Extremities: normal capillary refill Gastrointestinal (Abdomen) Inspection/Auscultation: abdomen normal to inspection Musculoskeletal Spine: + limited thoraco-lumbar ROM and + pain with thoraco-lumbar ROM Extremities: extremities normal to inspection and strength 5/5 throughout Skin no rashes, warm and dry Neurologic normal touch/pain/proprioception and moves all extremities Psychiatric A+Ox3, euthymic affect Eye Contact: good eye contact Discharge Data Consultations 01/21/25 14:18 Consult Hospitalist Routine Procedures Performed Operation Date: 01/21/25 10:05 Actual Procedures p L4-S1 Decompression and Fusion(Not Applicable) - Apollo Rider, Hospital Course (1) Lumbosacral spondylosis with radiculopathy: Patient is being discharged home on postoperative day 3 status post lumbar decompression and fusion. She has had an uneventful hospital course. Pain is greatly improved. She is making daily progress in physical therapy. Discharge Instructions ACTIVITY RECOMMENDATIONS: SELF CARE INSTRUCTIONS AFTER THORACIC/LUMBAR FUSIONS 1. You may walk to your tolerance. It is good exercise for your legs and back. Expect some back and intermittent leg aches and pains. 2. You may perform "counter-top" level activities (make a sandwich, néstor with a project, etc.). 3. No bending or lifting of more than 10 pounds or back twisting of any nature (roll like a log when turning in bed). 4. You may ride in a car for 20-30 minutes at a time. No driving until after your first visit with your doctor. 5. Frequent changes of position and restricting sitting to 30 minutes at a time will help limit the amount of back spasms and stiffness you may experience. 6. You may discontinue the use of ambulatory aids (cane, crutches, etc.) once your strength and confidence allow. 7. You may forming mill operator the shower and let water strike your incision when you arrive home at least once daily. Do not take a tub bath, sit in a hot tub or go into a swimming pool until after your first recheck in the office. 8. You may resume previous diet. SPECIAL CARE INSTRUCTIONS: VERY IMPORTANT TO READ AND REVIEW A. Your surgical incision has been closed with a cosmetic suture under the skin that will dissolve in about 6 weeks. In 14 days, you can use a pair of clean scissors and cut the suture that is left outside of the skin at the ends of your incision. 1. The small skin tapes can be removed 7 days after surgery if they have not fallen off by that point. 2. You may keep the wound open to air as much as possible to promote healing after post-op day number 5 unless told otherwise by your doctor. 3. If you think the wound looks like it is becoming infected (redness or worsening drainage) and/or you are experiencing fever, chill or worsening back pain and muscle spasms, contact the office so that we may evaluate you as soon as possible. B. Complications are uncommon, but please contact us if you have any signs or symptoms of: 1. wound infection (fever higher than 102.5 degrees F, redness, separation of wound, drainage, or increasing pain from the incision) 2. blood clots in legs (pain, swelling, redness and warmth in legs) 3. urinary tract infection (fever higher than 102.5 degrees F, burning upon urination or increased frequency of urination) 4. nerve problems (inability to walk on your toes or heels, numbness, loss of bowel or bladder control) 5. any other symptoms that concern you C. Please call the office at if you have any concerns or questions about your operation or recovery. D. No smoking! Smoking drastically decreases the chance of a solid fusion. E. Do not take any anti-inflammatory medications (Indocin, Advil, Motrin, Aspirin, Naprosyn, etc.) as these may inhibit the chance of a solid fusion. Tylenol is okay to take for pain. MANAGING PAIN AFTER SPINAL SURGERY 1. Narcotic medication is intended for short-term use and will be provided for surgical pain. Surgical pain usually lasts for a period of 4-6 weeks. Narcotic medication includes Percocet, Vicodin, Darvocet, Tylenol #3 or Lortab. 2. Longer-term pain is more appropriately treated with non-narcotic medication such as Tylenol ES. 3. Muscle spasm is not appropriately treated with narcotics. Muscle relaxers such as Soma, Flexeril or Skelaxin can be used along with Tylenol ES. 4. Remember that we all live with some "aches and pains". This is not unusual or uncommon after an injury or as we get older. a. Back pain is expected and may include muscle spasms for 4 to 6 weeks after surgery. The pain should gradually improve. If the pain worsens for no apparent reason, please contact the office. b. Intermittent leg pain may also be experienced and should not be concerned about unless it worsens for no apparent reason. If so, please contact the office. 5. We will provide appropriate medication within the normal guidelines of their prescribed use. We will also be very cautious and aware of potential abuse and extended duration of patients' medication needs. a. Pain medications are for your comfort and to assist with sleep and rest so that the tissue can heal. They are not provided in order to return to normal activity and should not be used through the day. To do so or worsening pain at night can result from ongoing tissue damage and development of tolerance to the prescribed medicine. 6. Please allow 2-3 days to process refills. Prescriptions will not be mailed but must be picked up at the office. FOLLOW UP VISIT: Keep your scheduled follow-up appointment. Any questions, please call the office at .
[2025-01-24] MEDS: SOD PHOSPHATE/SOD BIPHOSPHATE ENEMA 132 ML BTL PR STA (10:38)
--- NOTE | 2025-01-24 10:46 | Hospitalist Progress Note ---
<Statement entered by José Miguel Dotson, DO - 01/24/25 13:04> I have seen and examined the patient and have discussed the case with the advance practice provider. I have reviewed the advanced practitioner's documentation, and I agree with, and take responsibility for that plan of care. Patient doing well. Overall slept well. Anticipating discharge today. Anticipate resuming antihypertensive medications with discharge. Follow-up with PCP, Medically ready for discharge when discharged by attending surgeon. I spent a total of 10 minutes coordinating, documenting, and providing care for this patient excluding time spent by another provider/QHP. Date of Service January 24, 2025 Assessment & Plan (1) Lumbosacral spondylosis with radiculopathy: (2) HTN (hypertension): (3) COPD (chronic obstructive pulmonary disease): (4) Dyslipidemia: (5) Hypothyroidism: Plan 64 year old woman with a past medical history of COPD, dyslipidemia, fatty liver, HTN, hypothyroidism, GERD, and lumbosacral spondylosis with radiculopathy who underwent L4-S1 decompression and fusion by Dr. Rider on 01/21/2025. We have been consulted for post operative medical management. Lumbosacral spondylosis with radiculopathy POD#3 L4-S1 decompression and fusion by Dr. Rider on 01/21/2025 Activity level, pain control, DVT prophylaxis, bowel regimen, wound/drain care per primary team PT/OT consults recommending return home Acute blood loss anemia Preop Hgb 12.9-> 10.5 -> 10 today, stable Vitals stable and patient asymptomatic Hypertension BPs initially soft post op but normotensive today Confirmed with patient that bumex and isosorbide dc'd by her [facility] general farm manager last week Resume amlodipine and lopressor at home, follow up with PCP as scheduled for recheck Post operative hypoxia-> resolved Initially needed 4L O2 post op Currently on RA Encourage incentive spirometer COPD Patient cannot afford Trelegy, started Advair and sent script on dc Continue PRN albuterol Recommend follow up with Pulm and PFTs as scheduled in February Dyslipidemia Continue statin Hypothyroidism Continue levothyroxine DVT Prophylaxis: TEDs/SCDs per primary team Code Status: FULL CODE PCP: Felicity Robb ([facility]) Disposition: dc by primary service today Patient seen in collaboration with Dr. Dotson. Please see addendum. Thank you for this consultation. We will continue to follow this patient with you. [facility]/10 via the role in [employer] - please don't hesitate to reach out with questions. I spent a total of 45 minutes coordinating, documenting and providing care for this patient excluding time spent in the performance of separately billed services or time spent by another provider/QHP. Admission and Anticipated Discharge Date Admission Date: January 21, 2025 Subjective Seen and examined in 381. Feeling well today, ambulating with walker. Some discomfort but denies lower extremity pain or paresthesias. No post-op bowel movement but passing flatus. Enema ordered this AM. Denies F/C, dizziness, chest pain, SOB, abdominal pain, N/V. Review of Systems Review of Systems: At least ten systems reviewed and negative except as noted in the HPI. Physical Exam Physical Exam: Gen: WD/WN, NAD, resting in bed, A&Ox3 HEENT: Normocephalic, atraumatic, mucous membranes moist Lung: Clear to Auscultation bilaterally Heart: Regular rate, regular rhythm Abdomen: Soft, NT, ND +BS x 4 Extremities: +Spinal dressing c/d/i, HERLINDA drain visualized with minimal output, no edema Skin: Warm, no rash Results & Data Results & Data Vital Signs (Past 12 Hours) Vital Signs Temp Pulse Resp BP Pulse Ox O2 Del Method 01/24/25 07:42 36.8 C 74 16 124/71 94 Room Air 01/23/25 23:08 36.3 C L 75 18 117/68 91 Room Air Laboratory Results Short CBC 01/24/25 Range/Units 08:00 WBC 12.09 H (4.8-10.8) K/ul Hgb 10.0 L (12.0-16.0) g/dL Hct 30.8 L (37.0-47.0) % Plt Count 240 (130-400) K/uL BMP 01/24/25 08:00 Sodium 139 Potassium 4.0 Chloride 103 Carbon Dioxide 31 BUN 17 Creatinine 0.77 Glucose 84 Calcium 9.1 Diagnostic Findings Lumbar Spine X-Ray 01/21/25 10:05 FL lumbar spine 2-3V CLINICAL HISTORY: L4-S1 DECOMPRESSION AND FUSION COMPARISON STUDY: None FLUOROSCOPY TIME: 15 seconds FLUOROSCOPY IMAGES: 2 EXPOSURE DOSE: 15 mGy FINDINGS: Fluoroscopy was provided for lower lumbar fusion. IMPRESSION: Intraoperative fluoroscopy. ACT 112: Negative or not required by law. Electronically signed by: Romaine Cordero M.D. 01/21/2025 1:59 PM Chest X-Ray 01/21/25 21:28 Exam(s): XR CXR 1 VIEW EXAM: XR Chest, 1 View CLINICAL HISTORY: Reason for exam: wheezing. TECHNIQUE: Frontal view of the chest. COMPARISON: No relevant prior studies available. FINDINGS: Lungs: Unremarkable. No consolidation. Pleural space: Unremarkable. No pneumothorax. Heart: Unremarkable. No cardiomegaly. Mediastinum: Unremarkable. Normal mediastinal contour. Bones/joints: Unremarkable. No acute fracture. IMPRESSION: Normal chest x-ray. Electronically signed by: Martin Cartwright MD 01/21/25 23:08 PM
== END 2025-01-24 14:30 | disposition home or self-care (01) | DRG 427 ==
LOC: ASU 08:30 → PACUINP 12:25 → INTOOBSV 12:25 → 3N 15:06